=== PATIENT | male | born 1985 | race Hispanic/Latino ===

== ENCOUNTER 2019-10-04 17:38 | Emergency (ER) | payer SELFPAY ==
[2019-10-04] MEDS ORDERED: Adacel (T-DAP) 0.5 ML SYRINGE ONE (19:23)
[2019-10-04] MEDS ORDERED: Lidocaine 1% PF 5 ML VIAL ONE (19:24)
== END 2019-10-04 20:30 | disposition home or self-care (01) ==
LOC: ERS 17:38
DX: S01.81XA Laceration without foreign body of other part of head, initial encounter (principal); Z23 Encounter for immunization; W01.10XA Fall on same level from slipping, tripping and stumbling with subsequent striking against unspecified object, initial encounter; Y93.66 Activity, soccer
CPT/HCPCS: 12013; 90471; 90715; J2001

== ENCOUNTER 2020-04-17 10:04 | Emergency (ER) | payer SELFPAY ==
[~2020-04-17 10:04] MED LIST: Iopamidol-370 76% 500 ML 1 ML ONE
[2020-04-17] MEDS ORDERED: cefTRIAXone\\ROCEPHIN 2 GM VIAL ONE (10:27)
[2020-04-17] MEDS ORDERED: Azithromycin 500 MG VIAL ONE (10:27)
[2020-04-17 10:54] LABS: #Lymphocytes 1.1 thou/uL (1.20-3.40); #Monocytes 0.2 thou/uL (0.11-0.59); #Neutrophils 6.6 thou/uL (1.40-6.50); %Basophils 0.2 % (0.0-1.0); %Eosinophils 0.4 % (0.0-10.0); %Lymphocytes 13.3 % (21.0-51.0); %Monocytes 2.4 % (0.0-10.0); %Neutrophils 83.8 % (42.0-75.0); Hemoglobin 15.2 g/dL (14.0-18.0); Mean Corpuscular HGB CONC 34.7 g/dL (32.0-36.0); Mean Corpuscular Hemoglobin 30.7 pg (27.0-31.0); Mean Corpuscular Volume 88.4 fL (78.0-98.0); Mean Platelet Volume 8.6 fL (7.4-10.4); Platelet Count 211 thou/uL (130-400); RBC Distribution Width 12.2 % (11.5-14.5); Red Blood Cell (RBC) Count 4.97 mill/uL (4.70-6.10); White Blood Cell (WBC) Count 7.9 thou/uL (4.8-10.8)
[2020-04-17 11:06] LABS: Prothrombin Time 13.3 sec (12.0-14.7)
[2020-04-17 11:07] LABS: PTT 37.3 sec (22.9-36.1)
[2020-04-17 11:35] LABS: ALT (SGPT) 82 U/L (8-55); AST (SGOT) 69 U/L (5-34); Albumin 4.1 g/dL (3.5-5.0); Alkaline Phosphatase 96 U/L (40-110); Anion Gap 16 mmol/L (10-20); BUN (Urea Nitrogen) 10 mg/dL (8.9-20.6); Bilirubin, Total 0.5 mg/dL (0.2-1.2); Calc. Creatinine Clearance 0 mL/min (70-130); Calcium 8.8 mg/dL (7.8-10.44); Carbon Dioxide 22 mmol/L (22-29); Chloride 103 mmol/L (98-107); Globulin 4.4 g/dL (2.4-3.5); Glucose 129 mg/dL (70-105); Potassium 4.1 mmol/L (3.5-5.1); Protein, Total 8.5 g/dL (6.0-8.3); Sodium 137 mmol/L (136-145)
--- NOTE | 2020-04-17 11:58 | CT ---
CTA CHEST WITH CONTRAST: Date: 04/17/2020 TECHNIQUE: Axial tomograms obtained following angio protocol with multiplanar reconstruction and 3D postprocessi ng. INDICATION: Dyspnea. COVID pneumonia. No comparison studies. FINDINGS: Peripheral pulmonary artery evaluation is degraded due to motion artifact. No evidence of pulmonary embolus identified. Nonspecific mediastinal and hilar adenopathy. Review of the lung darling show diffuse patchy ground-glass infiltrates seen in the periphery of both lungs. These are prominent in the posterior lung bases, but are seen in all lobes of both lungs. Images through upper abdomen unremarkable. IMPRESSION: 1. No evidence of pulmonary embolus. 2. Diffuse bilateral peripheral patchy ground-glass infiltrates consistent with diffuse COVID pneumo mateo. POS: [facility]
== END 2020-04-17 11:55 | disposition home or self-care (01) ==
LOC: ERS 10:04
DX: U07.1 COVID-19 (principal); J12.82 Pneumonia due to coronavirus disease 2019
CPT/HCPCS: 71275; 80053; 83605; 85025; 85610; 85730; 87040; 94760; 96365; 96367; J0456; J0696; Q9967

== ENCOUNTER 2021-10-13 12:19 | Outpatient (CLI) | payer OTHER | END 2021-10-13 12:20 | disposition home or self-care (01) | LOC: LABBT 12:19 | PROVIDERS: ATTEND Internal Medicine Nephrology | DX: Z20.822 Contact with and (suspected) exposure to COVID-19 (principal) | CPT/HCPCS: 87811 ==

== ENCOUNTER 2021-10-18 08:24 | Day surgery (SDC) | payer OTHER ==
[2021-10-18 09:04] LABS: #Basophils 0.1 thou/uL (0.0-0.2); #Eosinphils 0.2 thou/uL (0.0-0.7); #Lymphocytes 1.9 thou/uL (1.20-3.40); #Monocytes 0.3 thou/uL (0.11-0.59); #Neutrophils 3.9 thou/uL (1.40-6.50); %Basophils 0.9 % (0.0-1.0); %Lymphocytes 29.8 % (21.0-51.0); %Monocytes 5.2 % (0.0-10.0); %Neutrophils 61.1 % (42.0-75.0); Hemoglobin 14.5 g/dL (14.0-18.0); Mean Corpuscular HGB CONC 34.8 g/dL (32.0-36.0); Mean Corpuscular Volume 89.2 fL (78.0-98.0); Mean Platelet Volume 9.1 fL (7.4-10.4); Platelet Count 159 thou/uL (130-400); RBC Distribution Width 12.8 % (11.5-14.5); Red Blood Cell (RBC) Count 4.67 mill/uL (4.70-6.10); White Blood Cell (WBC) Count 6.3 thou/uL (4.8-10.8)
[2021-10-18 09:24] LABS: PTT 34.5 sec (22.9-36.1); Prothrombin Time 12.9 sec (12.0-14.7)
[2021-10-18 11:11] VITALS: BP 158/101; TEMP 98.3
== END 2021-10-18 13:30 | disposition home or self-care (01) ==
LOC: CT 08:24
PROVIDERS: ATTEND Internal Medicine Nephrology
PROC: 0TB13ZX Excision of Left Kidney, Percutaneous Approach, Diagnostic (ICD-10-PCS; principal; 2021-10-18)
DX: N02.8 Recurrent and persistent hematuria with other morphologic changes (principal); I12.9 Hypertensive chronic kidney disease with stage 1 through stage 4 chronic kidney disease, or unspecified chronic kidney disease; N18.30 Chronic kidney disease, stage 3 unspecified; D63.1 Anemia in chronic kidney disease; Z79.899 Other long term (current) drug therapy
CPT/HCPCS: 36415; 50200; 77012; 85025; 85610; 85730; 88329